=== PATIENT | male | born 1970 | race Caucasian/White ===

== ENCOUNTER 2022-07-09 08:43 | Outpatient (CLI) | payer BC, SELFPAY ==
[2022-07-09 14:14] LABS: Albumin* 4.3 g/dL (3.3-5.0)
[2022-07-09 14:15] LABS: Chloride* 108 mmol/L (96-114); Potassium* 4.4 mmol/L (3.6-5.1); Sodium* 145 mmol/L (135-149)
[2022-07-09 14:17] LABS: Aspartate Amino Transferase* 28 U/L (12-35); Bilirubin Total* 0.7 mg/dL (0.1-1.5); Carbon Dioxide* 26 mmol/L (20-32); Cholesterol* 213 mg/dL (90-199); Creatinine* 0.9 mg/dL (0.5-1.5); Estimated Glomerular Filt Rate 103 ml/min; Total Protein* 7.2 g/dL (6.0-8.3)
[2022-07-09 14:18] LABS: Alanine Aminotransferase* 50 U/L (4-50); Alkaline Phosphatase* 94 U/L (40-150); Blood Urea Nitrogen* 17 mg/dL (7-30); Calcium* 9.5 mg/dL (8.4-10.6); Glucose* 109 mg/dL (60-115); HDL Cholesterol* 36 mg/dL (>=40); LDL Cholesterol Calculated 120 mg/dL (<100); Triglycerides* 287 mg/dL (40-149)
[2022-07-09 14:48] LABS: PSA Screen* 0.26 ng/mL (0.10-4.00)
[2022-07-09 15:04] LABS: Hepatitis C Virus Antibody* Negative (Negative)
== END 2022-07-09 08:44 | disposition home or self-care (01) ==
PROVIDERS: PCP Family Medicine; Visit Provider Family Medicine
DX: Z00.00 Encounter for general adult medical examination without abnormal findings (principal); E78.2 Mixed hyperlipidemia; R74.8 Abnormal levels of other serum enzymes; E78.1 Pure hyperglyceridemia; Z11.59 Encounter for screening for other viral diseases; Z12.5 Encounter for screening for malignant neoplasm of prostate
CPT/HCPCS: 80053; 80061; 84153; 86803

== ENCOUNTER 2022-11-06 10:30 | Outpatient (CLI) | payer BC, SELFPAY ==
[2022-11-06 12:41] VITALS: BP 162/80; PULSE 103; RESP 18
--- NOTE | 2022-11-06 14:36 | W.PM.STED ---
Stress Test Note Date Date Seen: 11/06/22 Providers Primary care provider: Cristine Smith Stress test physician: Bhavesh Land Stress Test Note Stress test ordered: Exercise Stress Test Indication for test: Chest pain Results discussion: Patient is a very nice 52-year-old gentleman who presents for the above test, indication is chest pain, after discussion the risks benefits and side effects he would like to proceed. Pretest EKG shows normal sinus rhythm with a ventricular rate of 76 a blood pressure 112 on 74, no acute ST wave changes are seen. Following standard Sudhir protocol patient is exercised for a total time of 8 minutes condition is felt to be moderate, she achieved a metabolic equivalent of 9.5 Mets, with a maximum heart rate of 166 which is 115% of the target, during this test he had no chest pain shortness of breath, he had some leg discomfort, he recovered normally in the recovery. Review of the tracing showed no evidence of dysrhythmias, there were no acute ST wave changes suggestive of ischemia, Impression: Negative electrographic portion of stress test, conditioning was felt to be good. Follow up suggested: Patient we referred back to the primary care physician for further consideration, this testing facility in good condition, there were no complications.
== END 2022-11-06 12:00 | disposition home or self-care (01) ==
PROVIDERS: PCP Family Medicine; Visit Provider Family Medicine
DX: R07.9 Chest pain, unspecified (principal)
CPT/HCPCS: 93016; 93017

== ENCOUNTER 2023-08-19 07:50 | Outpatient (CLI) | payer BC, SELFPAY | END 2023-08-19 07:51 | disposition home or self-care (01) | PROVIDERS: PCP Family Medicine; Visit Provider Family Medicine | DX: R74.8 Abnormal levels of other serum enzymes (principal); E78.1 Pure hyperglyceridemia; E78.5 Hyperlipidemia, unspecified | CPT/HCPCS: 80053; 80061 ==

== ENCOUNTER 2023-09-23 13:00 | Outpatient (RCR) | payer BC, SELFPAY | END 2024-01-21 23:59 | disposition home or self-care (01) | PROVIDERS: PCP Family Medicine; Visit Provider Family Medicine | DX: M54.30 Sciatica, unspecified side (principal); Z51.89 Encounter for other specified aftercare | CPT/HCPCS: 97110; 97140; 97162 ==

== ENCOUNTER 2023-10-25 21:24 | Emergency (ER) | payer BC, SELFPAY ==
[2023-10-25 21:33] VITALS: BP 132/79; PULSE 94; RESP 18; TEMP 36.6; O2SAT 97; BMI 45.1
--- NOTE | 2023-10-25 21:45 | XR_ITS ---
Patient: WOODROW BRANTLEY Facility:?[facility] Patient ID:?[id number] Site Patient ID:?[id number]. Site :?[id number] Study:?XRay-Knee Right 3 VIEWS-10/25/2023 10:08:14 PM Ordering Physician:ANUJ Final Report: INDICATION: Right knee pain. TECHNIQUE: Right knee radiograph3, views. COMPARISON: None. FINDINGS: No acute fractures or dislocation. Mild tricompartmental degenerative joint space narrowing and marginal osteophytosis. The joint spaces are otherwise preserved. No significant joint effusion. No significant soft tissue edema or radiopaque foreign bodies. IMPRESSION: No acute fractures or dislocation. Dictated by Jose Armando Davila MD @ 10/25/2023 10:50:55 PM Signed by:?Jose Armando Davila MD @10/25/2023 10:50:55 PM (Electronic Signature)
--- NOTE | 2023-10-25 21:53 | ED.LOWEXIN ---
HPI - Extremity Injury (Lower) General Chief Complaint: Extremity Pain/Injury, Lower Stated Complaint: right knee pain Time Seen by Provider: 10/25/23 21:41 History of Present Illness HPI Narrative: Patient is a reasonably healthy 53-year-old gentleman who was walking up the stairs night and felt extreme popping and pain over the lateral aspect of the anterior surface of his right knee. He is unable to bear weight but has no pain when he is not weight-bearing. He has no swelling no ecchymosis no deformities. He has no pain in his Achilles. He has no numbness no tingling. Patient did not fall and has no other injuries. Patient has had no similar symptoms previously. Related Data Previous Rx's Medication Instructions Recorded nitroglycerin 0.3 mg sublingual 0.3 mg sublingual Q5M PRN chest 10/29/22 tablet pain #10 tabs albuterol sulfate 90 mcg/actuation 2 puff inhalation Q4H PRN 08/19/23 aerosol inhaler (ProAir HFA) bronchospasm #8.5 grams cholestyramine (with sugar) 4 gram 4 g PO DAILY #1,134 grams 08/19/23 oral powder epinephrine 0.3 mg/0.3 mL 0.3 mg (0.3 mL) IM ONCE PRN 08/19/23 injection, auto-injector anaphylaxis #2 ea gabapentin 300 mg capsule 300 - 900 mg (1 - 3 x 300 mg) PO 08/19/23 TID PRN sciatica #180 caps montelukast 10 mg tablet 10 mg PO .Bedtime #90 tabs 08/19/23 cyclobenzaprine 10 mg tablet 10 mg PO BID PRN for muscle spasm 08/30/23 #30 tabs Allergies Allergy/AdvReac Type Severity Reaction Status Date / Time animal dander Allergy Severe Wheezing Verified 08/19/23 07:58 Review of Systems Status of ROS: Reports: 10 or more systems reviewed and unremarkable except as noted in History and below [facility] Medical History Calculus of left ureter ?N20.1 - Calculus of ureter (ICD-10) Surgical History S/P cholecystectomy ?Z90.49 - Acquired absence of other specified parts of digestive tract (ICD-10) Family History Brother Cardiovascular disease Family/Other PAD (peripheral artery disease) Skin cancer Mother Carotid stenosis Other Coronary artery disease Social History Narrative: , nonsmoker Smoking Status: Never smoker How often do you have a drink containing alcohol: never AUDIT-C Alcohol total score: 0 Non-prescribed substance use: denies use Little interest or pleasure in doing things: not at all Feeling down, depressed, or hopeless: not at all Exam Narrative: Exam Narrative: EXAM GENERAL: Patient appears comfortable and well. EYES: No scleral icterus. LYMPH: No supraclavicular or cervical lymphadenopathy. SKIN: Visible skin seen during exam normal or with benign process only. EXT: No dependent lower extremity pedal edema. HEART: Regular rate and rhythm with no murmurs, rubs, or gallops. LUNGS: Clear to auscultation bilaterally with no crackles or wheezes. ABD: Soft, non tender, non distended. PSYCH: Good eye contact, speech is not pressured. Examination is right knee shows no pain to palpation no range of motion defects. Patient has pain with direct weight-bearing. Otherwise grossly normal knee on inspection. Const: Vital Signs, click to edit/add: Vital Signs - 24 hr 10/25/23 21:33 Temperature 97.9 F Pulse Rate [Left P ulse Oximeter] 94 Respiratory Rate 18 Blood Pressure [Ri ght Upper Arm] 132/79 Pulse Oximetry 97 Oxygen Delivery Me thod Room Air Course Course ED Course: Patient seen examined. X-ray series negative upon my review. Vital Signs Vital signs: Initial Vital Signs Temperature 97.9 F 10/25/23 21:33 Temperature Source Temporal Artery Scan 10/25/23 21:33 Pulse Rate 94 10/25/23 21:33 Pulse Rhythm Regular 10/25/23 21:33 Respiratory Rate 18 10/25/23 21:33 Blood Pressure 132/79 10/25/23 21:33 Blood Pressure Mean 96 10/25/23 21:33 Blood Pressure Position Sitting 10/25/23 21:33 Pulse Oximetry 97 10/25/23 21:33 Oxygen Delivery Method Room Air 10/25/23 21:33 Vital Signs Temperature 97.9 F 10/25/23 21:33 Pulse Rate 94 10/25/23 21:33 Respiratory Rate 18 10/25/23 21:33 Blood Pressure 132/79 10/25/23 21:33 Pulse Oximetry 97 10/25/23 21:33 Oxygen Delivery Method Room Air 10/25/23 21:33 Temperature 97.9 F 10/25/23 21:33 Pulse Rate 94 10/25/23 21:33 Respiratory Rate 18 10/25/23 21:33 Blood Pressure 132/79 10/25/23 21:33 Pulse Oximetry 97 10/25/23 21:33 Oxygen Delivery Method Room Air 10/25/23 21:33 MDM - Extremity Injury (Lower) MDM Narrative Medical decision making narrative: Patient is a 53-year-old gentleman who presents with what appears to be ligamentous injury of the right knee. This point x-ray series is normal. I did recommend ice Tylenol Motrin nonweightbearing over the weekend with MRI to follow early next week. Differential diagnosis includes but not limited to tibial plateau fracture ACL tear PCL tear medial meniscal injury medial collateral ligament injury. Discharge Plan Discharge Clinical Impression: Knee pain Condition: Stable Instructions: Knee Sprain (ED) Additional Instructions: Nonweightbearing Ice Tylenol Motrin Rest Follow-up next week for MRI. Activity Level: No Restrictions Discharge Diet: Regular Prescriptions: No Action nitroglycerin 0.3 mg tablet, sublingual 0.3 mg sublingual Q5M PRN (Reason: chest pain) Qty: 10 0RF Rx Instructions: do not exceed 3 doses per episode albuterol sulfate [ProAir HFA] 90 mcg/actuation HFA aerosol inhaler 2 puff inhalation Q4H PRN (Reason: bronchospasm) Qty: 8.5 12RF cholestyramine (with sugar) 4 gram powder 4 g PO DAILY Qty: 1134 12RF Rx Instructions: dispense 3 cans or jars at a time epinephrine 0.3 mg/0.3 mL auto-injector 0.3 mg IM ONCE PRN (Reason: anaphylaxis) Qty: 2 12RF Rx Instructions: as a single dose; may repeat once montelukast 10 mg tablet 10 mg PO .Bedtime Qty: 90 3RF gabapentin 300 mg capsule 300 - 900 mg PO TID PRN (Reason: sciatica) Qty: 180 1RF cyclobenzaprine 10 mg tablet 10 mg PO BID PRN (Reason: for muscle spasm) Qty: 30 0RF Follow Up/Referrals: Cristine Smith MD [Primary Care Provider] - Stand Alone Forms: MyHealth Info Instructions
== END 2023-10-25 22:20 | disposition home or self-care (01) ==
LOC: ED 22:07
PROVIDERS: Emergency Provider Internal Medicine; PCP Family Medicine
DX: M25.561 Pain in right knee (principal)
CPT/HCPCS: 73562; 99283; 99284

== ENCOUNTER 2023-12-09 19:24 | Outpatient (CLI) | payer BC, SELFPAY | END 2023-12-09 19:25 | disposition home or self-care (01) | LOC: SLEEP 02-07 11:51 | PROVIDERS: PCP Family Medicine; Visit Provider Otolaryngology | DX: G47.33 Obstructive sleep apnea (adult) (pediatric) (principal) | CPT/HCPCS: 95806 ==

== ENCOUNTER 2024-11-09 15:32 | Outpatient (CLI) | payer BC, SELFPAY | END 2024-11-09 15:33 | disposition home or self-care (01) | LOC: NFLDREF 11-13 06:55 | PROVIDERS: PCP Family Medicine; Referring Provider Family Medicine; Visit Provider Family Medicine | DX: E11.9 Type 2 diabetes mellitus without complications (principal); E78.2 Mixed hyperlipidemia; E78.1 Pure hyperglyceridemia; R74.8 Abnormal levels of other serum enzymes; J45.40 Moderate persistent asthma, uncomplicated; Z12.5 Encounter for screening for malignant neoplasm of prostate; Z90.49 Acquired absence of other specified parts of digestive tract | CPT/HCPCS: 80053; 80061; 82043; 82570; G0103 ==